=== PATIENT | male | born 1980 | race African-American/Black ===

== ENCOUNTER 2017-02-21 10:17 | Inpatient (IN) | payer MEDICAID ==
--- NOTE | 2017-02-21 11:12 | EDPHY ---
H & P Smoking Status: Current every day smoker Time Seen by Provider: 02/21/17 10:58 HPI/ROS: CHIEF COMPLAINT: "Any mental health" HISTORY OF PRESENT ILLNESS: Patient is a 36-year-old male with a history of paranoid schizophrenia who presents to the emergency department requesting mental health evaluation. The patient states that he moved from [facility]. He has been off his medications for 4 months. He has increased anxiety. He is hearing voices. He states he hears voices of both his children talking to him. Has no suicidal ideation or thoughts of wanting to hurt himself. He denies any drug abuse or self-harm. He has no chest pain or shortness of breath. No abdominal pain. REVIEW OF SYSTEMS: My complete review of systems is negative except as mentioned in the HPI. ( Ericka Zafar) Past Medical/Surgical History: Includes paranoid schizophrenia common pneumothorax Past surgical history: Thoracotomy for pneumothorax Social history: The patient smokes cigarettes. He denies drugs or alcohol ( Ericka Zafar) Physical Exam: Vitals noted GENERAL: Well-appearing, in no acute distress, alert. HEENT: Eyes normal to inspection, normal pharynx, no signs of dehydration. NECK: No thyromegaly, no lymphadenopathy, supple. RESPIRATORY: Clear to auscultation bilaterally, no rales, rhonchi or wheezing. CVS: Regular rate and rhythm, no rubs, murmurs, or gallops. ABDOMEN: Soft, nontender, nondistended, no organomegaly. BACK: Normal to inspection, no CVA tenderness. SKIN: Normal color, no rash, warm, dry. No pallor. EXTREMITIES: No pedal edema, no calf tenderness, no Homans sign or cords, no joint swelling. NEURO/PSYCH: Alert and oriented, tearful, normal motor sensory exam. No obvious cranial nerve deficit. (Ericka Zafar) Constitutional: Initial Vital Signs Temperature (C) 37.0 C 02/21/17 10:21 Heart Rate 91 02/21/17 10:21 Respiratory Rate 16 02/21/17 10:21 Blood Pressure 144/90 H 02/21/17 10:21 O2 Sat (%) 97 02/21/17 10:21 O2 Delivery Mode Room Air Allergies/Adverse Reactions: aspirin Allergy (Verified 02/21/17 10:20) ibuprofen Allergy (Verified 02/21/17 10:20) Home Medications: Medication Instructions Recorded Unobtainable 02/23/17 Medical Decision Making ED Course/Re-evaluation: The patient presents to the emergency department requesting a mental health evaluation. He has no suicidal ideation. I do not feel he needs to be placed on a mental health hold. I discussed this with nursing. Laboratory studies were drawn. Patient's laboratory studies were unremarkable. CBC and chemistry were normal. His tox screen was positive for THC. Patient was agitated during his initial evaluation. He was given Zyprexa 10 mg orally. 1500: The patient is signed out to Dr. Hooper at change of shift. Patient is stable. (Ericka Zafar) I assumed care of this patient from Dr. Zafar at change of shift, 3:00 p.m.. He has been medically cleared. We are awaiting evaluation from mental health. Patient was accepted [facility] and was transferred at 9:27 p.m.. Transfer paperwork signed by myself. (Savannah Hooper) Differential Diagnosis: My differential includes but is not limited to psychosis, schizophrenia, depression, suicidal ideation, drug abuse, alcohol abuse (Ericka Zafar) - Data Points Laboratory Results: Laboratory Results 02/21/17 11:05 02/21/17 11:05 Medications Given: Amlodipine Besylate (Norvasc) 5 mg PO HS [facility] Stop: 08/22/17 20:59 Last Admin: 02/24/17 20:57 Dose: 5 mg Benztropine Mesylate (Cogentin) 1 mg IM BID [facility] Stop: 02/25/17 23:59 Last Admin: 02/25/17 12:00 Dose: Not Given Benztropine Mesylate (Cogentin) 1 mg PO BID [facility] Stop: 02/25/17 23:59 Last Admin: 02/25/17 11:53 Dose: 1 mg Risperidone (Risperdal-M) 2 mg SL TID [facility] Stop: 02/25/17 23:59 Last Admin: 02/25/17 11:52 Dose: 2 mg Discontinued Medications Benztropine Mesylate (Cogentin) 1 mg PO BID [facility] Stop: 02/24/17 21:01 Last Admin: 02/24/17 20:57 Dose: 1 mg Benztropine Mesylate (Cogentin) 1 mg IM BID [facility] Stop: 02/24/17 21:01 Last Admin: 02/24/17 22:13 Dose: Not Given Diphenhydramine HCl (Benadryl) 50 mg PO ONCE ONE Stop: 02/23/17 20:46 Last Admin: 02/23/17 21:20 Dose: Not Given Diphenhydramine HCl (Benadryl Injection) 50 mg IM ONCE ONE Stop: 02/23/17 20:46 Last Admin: 02/23/17 20:59 Dose: 50 mg Haloperidol (Haldol) 5 mg PO ONCE ONE Stop: 02/23/17 20:46 Last Admin: 02/23/17 21:20 Dose: Not Given Haloperidol Lactate (Haldol Injection) 5 mg IM BID [facility] Stop: 02/24/17 11:15 Last Admin: 02/24/17 11:18 Dose: Not Given Haloperidol Lactate (Haldol Injection) 5 mg IM ONCE ONE Stop: 02/23/17 20:46 Last Admin: 02/23/17 20:59 Dose: 5 mg Haloperidol Lactate (Haldol Injection) 5 mg IM BID [facility] Stop: 02/24/17 21:01 Last Admin: 02/24/17 22:13 Dose: Not Given Lorazepam (Ativan) 1 mg PO Q4 PRN PRN Reason: ANXIETY Stop: 08/20/17 20:59 Last Admin: 02/25/17 09:28 Dose: 1 mg Lorazepam (Ativan) 2 mg PO ONCE ONE Stop: 02/23/17 20:46 Last Admin: 02/23/17 21:19 Dose: Not Given Lorazepam (Ativan Injection) 2 mg IM ONCE ONE Stop: 02/23/17 20:46 Last Admin: 02/23/17 20:59 Dose: 2 mg Lorazepam (Ativan) 2 mg PO Q4 PRN PRN Reason: Anxiety Stop: 02/25/17 09:20 Last Admin: 02/24/17 11:17 Dose: 2 mg Lorazepam (Ativan) 2 mg PO Q4HRS PRN PRN Reason: EMED for anxiety or agitation Stop: 02/26/17 10:41 Last Admin: 02/25/17 12:30 Dose: 2 mg Olanzapine (Zyprexa Zydis) 10 mg PO EDNOW ONE Stop: 02/21/17 12:49 Last Admin: 02/21/17 12:50 Dose: 10 mg Olanzapine (Zyprexa Zydis) 10 mg PO EDNOW ONE Stop: 02/21/17 21:28 Last Admin: 02/21/17 21:31 Dose: 10 mg Olanzapine (Zyprexa Zydis) 5 mg PO Q4 PRN PRN Reason: AGITATION Stop: 08/20/17 20:59 Last Admin: 02/22/17 06:58 Dose: 5 mg Olanzapine (Zyprexa Zydis) 10 mg PO BID [facility] Stop: 08/21/17 10:44 Last Admin: 02/23/17 09:04 Dose: Not Given Risperidone (Risperdal-M) 2 mg SL BID [facility] Stop: 02/24/17 11:15 Last Admin: 02/24/17 10:38 Dose: Not Given Risperidone (Risperdal-M) 4 mg SL BID [facility] Stop: 02/24/17 21:01 Last Admin: 02/24/17 20:57 Dose: 4 mg Departure - Departure Disposition: Home, Routine, Self-Care Clinical Impression: Schizophrenia Qualifiers: Schizophrenia type: unspecified Qualified Code(s): F20.9 - Schizophrenia, unspecified Condition: Good
[2017-02-21 11:13] LABS: % IMMATURE GRANULYOCYTES 0.1 % (0.0-1.1); ABSOLUTE IMMATURE GRANULOCYTES 0.01 10^3/uL (0.00-0.10); ADD DIFF? NO; ADD MORPH? NO; ADD SCAN? NO; ATYPICAL LYMPHOCYTE FLAG 20 (0-99); FRAGMENT RBC FLAG 0 (0-99); HEMATOCRIT 46.5 % (40.0-51.0); HEMOGLOBIN 15.9 g/dL (13.7-17.5); LEFT SHIFT FLG 0 (0-99); LIPEMIA HEMOLYSIS FLAG 90 (0-99); MEAN CELL HEMOGLOBIN 28.6 pg (27.9-34.1); MEAN CELL HEMOGLOBIN CONCENTR. 34.2 g/dL (32.4-36.7); MEAN CELL VOLUME 83.6 fL (81.5-99.8); MEAN PLATELET VOLUME 9.9 fL (8.7-11.7); PLATELET CLUMPS FLAG 10 (0-99); PLATELET COUNT 221 10^3/uL (150-400); RED BLOOD CELL COUNT 5.56 10^6/uL (4.40-6.38); RED CELL DISTRIBUTION WIDTH 12.8 % (11.5-15.2)
[2017-02-21 11:24] LABS: ANION GAP 10 mEq/L (8-16); CALCIUM 9.9 mg/dL (8.5-10.4); CARBON DIOXIDE 27 mEq/l (22-31); CHLORIDE 102 mEq/L (97-110); CREATININE 1.1 mg/dL (0.7-1.3); GLOMERULAR FILTRATION RATE > 60; GLUCOSE 94 mg/dL (70-100); POTASSIUM 4.1 mEq/L (3.5-5.2); SODIUM 139 mEq/L (134-144)
[2017-02-21] MEDS ORDERED: OLANZapine DISINTEGR 10 MG TAB PO ONE ×2 (12:48→21:27)
[2017-02-21 13:43] LABS: ETHANOL SERUM < 10 mg/dL (0-10)
[2017-02-21] MEDS ORDERED: MELATONIN 3 MG TAB PO PRN (21:00)
[2017-02-21] MEDS ORDERED: ACETAMINOPHEN 325 MG TAB PO PRN (21:00)
[2017-02-21] MEDS ORDERED: OLANZapine DISINTEGR 5 MG TAB PO PRN (21:00)
[2017-02-21] MEDS ORDERED: MAGNESIUM HYDROXIDE 30 ML UDCUP PO PRN (21:00)
[2017-02-21] MEDS ORDERED: MAG HYDROX/AL HYDROX/SIMETH 30 ML UDCUP PO PRN (21:00)
[2017-02-21] MEDS ORDERED: OLANZapine DISINTEGR 10 MG TAB ONE (21:21)
[2017-02-22] MEDS ORDERED: OLANZapine DISINTEGR 5 MG TAB PO PRN (10:43)
[2017-02-22] MEDS: OLANZapine DISINTEGR 10 MG TAB PO SCH ×2 (11:39→20:00)
--- NOTE | 2017-02-22 11:44 | BAPA ---
[f rep st] ADMISSION PSYCHIATRIC ASSESSMENT IDENTIFICATION: This is a 36-year-old, single, male, who is homeless, who has a history of mental illness, and reportedly moved to [place] from [place] 4 months ago. CHIEF COMPLAINT: "It does not matter. I don't want to insult your intelligence." HISTORY OF PRESENT ILLNESS: The patient is a poor historian. He is unable to explain how he got to the emergency room or his recent symptoms. He is unable to describe his mood or describe his thought content. He refuses to answer questions about past psychotic symptoms, past mood symptoms, past anxiety symptoms, past substance abuse, or past psychiatric treatments. The patient abruptly gets up from the interview and walks away in a disorganized manner. Per the emergency room department, the patient there was apparently acting disorganized, received olanzapine 10 mg twice p.r.n. for agitation, was briefly irritable and screaming and broke a phone. He was not able to give much history. The patient was admitted on an M1 hold dated February 21, 2017, at 6: 18 p.m. for grave disability due to disorganized behavior and thinking. The notes from the emergency room also indicate the patient endorsed having auditory hallucinations, having mood swings, having history of abbie, history of posttraumatic stress disorder, and history of intermittent explosive disorder. The patient also reported to the emergency room that he had not taken medications for 3 months after moving to [place] from [place]. PAST PSYCHIATRIC HISTORY: The patient is a poor historian, will not disclose his past treatment. He is unable to explain past medications or past psychiatric hospitalizations. Per the notes, the patient has a history of mental health treatment in [place]. The patient is unable to explain if he has any history of violence toward others or any self-injurious behavior in the past. The patient will not explain any legal problems, but there is a note in the emergency room evaluation that the patient may have been arrested for stalking a mental health worker in [place] in the past. PAST MEDICAL HISTORY: The patient is unable to explain his medical conditions. He did have a physical exam in the emergency department by the emergency room physician, but did not find any major medical problems. The patient has a history of a pneumothorax treated surgically in the past per notes. MEDICATIONS: The patient reported not taking any medications in the emergency room. ALLERGIES: The patient has listed allergies to ibuprofen and aspirin. SOCIAL HISTORY: The patient is unable to explain his childhood history. In the emergency room, he reported that his mother lives in [place], and that he was homeless and unemployed and denied a history of trauma. The patient reported to the emergency room that he has a GED, and has in the past lived in homeless shelters, and has in the past done construction jobs. FAMILY HISTORY: He told a staff that his brother and father were murdered. LABS: In the Emergency Department, the CBC was normal with a white blood cell count 7.2, hemoglobin 15.9, platelet count 221. His BMP was normal with a sodium 139, potassium 4.1, chloride 102, BUN 11, creatinine 1.1, glucose 94, calcium 9.9. His urine tox screen was positive for cannabis only. MENTAL STATUS EXAM: VITAL SIGNS: This morning, his blood pressure is 129/80, pulse 114, respiratory rate 14, pulse ox 95% on room air. He is afebrile. PSYCH: He is a tall and thin male who is ambulatory. He appears briefly agitated. He has poor eye contact. Appears internally preoccupied and mumbling to himself. His thoughts are disorganized. His behavior is disorganized; earlier he attempted to hug a staff. He impulsively gets up and walks away. He appears agitated and anxious. He is unable to describe his mood. His thought process is illogical and disjointed. Unable to assess for his thought content, so unable to assess if he is having violent or suicidal thoughts or hallucinations at this time. He appears suspicious and paranoid to this doctor. His insight appears to be poor. His judgment appears to be impaired. ASSESSMENT: 1. Schizophrenia, rule out schizoaffective disorder, bipolar type. 2. Cannabis use disorder. 3. Homelessness. No supports. Overall the patient appears disorganized, illogical, and agitated this morning. He did receive 20 mg of olanzapine in the emergency room yesterday. Unable to obtain clear information regarding past treatment episodes that the patient may have had in the past for mental illness. The patient appears to have severe stressors with homelessness. The patient may or may not have legal stressors in [place], based on the report in the emergency room that he had a history of an arrest for stalking. PLAN OF TREATMENT: 1. The patient is on mental health hold for grave disability. The patient does not appear able to care for himself, as he has been homeless prior to admission, has no supports, and appears very disorganized. 2. The patient did apparently have some benefit from olanzapine in the emergency room yesterday, so we will schedule olanzapine oral dissolving tablet 10 mg by mouth twice a day, starting this morning, to treat the psychotic disorganization. 3. We will monitor the patient's behavior, impulse control, and judgment on that unit, and reassess the patient's mood symptoms to clarify if the patient has a chronic mood disorder when the patient is cooperative. 4. When the patient is cooperative and more calm, we will try to obtain more social history and information about his past psychiatric treatment episodes. 5. It is unclear if the patient will be eventually discharged into the [facility] or back to [place]. The patient apparently has [facility] Medicaid, so may or may not have had treatment in [place] before. 6. If the patient is cooperative, we will try to obtain release information to contact the patient's mother to get collateral information. We will order Ativan 1 mg p.o. q.4 hours p.r.n. for severe anxiety or insomnia on the unit. 7. The patient will get a baseline physical exam by the hospitalist today or tomorrow. /[id number]/MODL MTDD
--- NOTE | 2017-02-23 03:59 | BCON ---
[f rep st] BEHAVIORAL HEALTH CONSULTATION INTERNAL MEDICINE CONSULTATION DATE OF CONSULTATION: 02/22/2017 REFERRING PHYSICIAN: Wesley Flores MD REASON FOR CONSULTATION: Medical clearance for inpatient behavioral health stay. HISTORY OF PRESENT ILLNESS: This patient came to the [facility] Emergency Department requesting mental health help. There he was evaluated by the mental health team and admitted for further psychiatric care. Currently, he is without any acute medical complaints. PAST MEDICAL HISTORY: 1. Cataracts, which he reports is a hereditary condition. 2. Pneumothorax. PAST SURGICAL HISTORY: He has had cataract surgery, and he had a surgery for a pneumothorax. MEDICATIONS: Prior to admission, he is not forthcoming. ALLERGIES: Listed to aspirin and ibuprofen. SOCIAL HISTORY: Gleaned from reviewing the chart. He is homeless. He has been in [place] for several months. He came from [place], [place]. He is a tobacco/cigarette smoker. FAMILY HISTORY: He is not forthcoming. REVIEW OF SYSTEMS: Very limited. He denies pain, difficulty breathing, or any other acute symptoms. Otherwise, he is not cooperative. PHYSICAL EXAMINATION: VITAL SIGNS: Blood pressure is 129/80, heart rate was 114 at 6:36 this morning, respiratory rate is 14, oxygen saturation is 95% on room air, temperature is 36.3 degrees centigrade. His weight is 83.9 kg for a body mass index of 24.1. GENERAL: This is a well-nourished, well-developed man , initially cooperative, subsequently emotionally labile, and no longer cooperative. HEENT: Extraocular movements are intact. Mucous membranes are moist. Dentition appears to be in good condition. NECK: Supple. HEART: He was not cooperative with exam. LUNGS: There are no retractions and no accessory muscle use. He is not tachypneic. ABDOMEN: Appears to be benign. EXTREMITIES: There is no cyanosis, clubbing, or edema. NEUROLOGIC: He is alert. Orientation was not checked. He is emotionally labile and becomes tearful and crying during the interview. He also has psychomotor agitation, and eventually gets up and walks away. He moves all extremities and appears to have no focal weakness. His gait is within normal limits. LABORATORY STUDIES: Drawn in the emergency department, CBC was entirely within normal limits. Serum chemistry revealed normal renal function and electrolytes. Toxicology screen in the serum was negative for ethyl alcohol. Urine was non-negative for marijuana, but was otherwise negative for substances of abuse. ASSESSMENT/RECOMMENDATIONS: 1. Mental health issues pending further evaluation and management per Psychiatry and the mental health team. 2. Tobacco dependence syndrome. It would be in his best interest to quit smoking. 3. Elevated blood pressure, has been normalizing during his stay. Continue to monitor. If it remains elevated, he might benefit from antihypertensives, but he does not seem to meet threshold at this point. I see no medical contraindications to this patient's continued stay on the inpatient behavioral health unit or to any psychiatric medications or procedures. Thank you very much for including me in the care of this patient, and please do not hesitate to contact me or the hospitalist service should there be need for further medical evaluation. /[id number]/MODL MTDD
[2017-02-23] MEDS: LORazepam 1 MG TAB PO PRN (07:19)
[2017-02-23] MEDS: OLANZapine DISINTEGR 10 MG TAB PO SCH (09:04)
--- NOTE | 2017-02-23 11:06 | SOAPPROG ---
SOAP Progress Note Assessment/Plan: Assessment: Schizoaffective Disorder Cannabis Use Disorder - severe Homeless, no current supports Hypertension Patient admitted on M-1 hold for severe agitation, property destruction, and severe disorganization. Patient refused Zyprexa this AM and required PRN medication yesterday for agitation and impulsive behavior; patient impulsive throwing food and yelling inappropriately this AM. Patient is guarded, disorganized, and a poor historian. Plan: EMED DAY ONE Start Risperdal Mtab 2mg SL BID, if refused Haldol 5mg IM Start Ativan 1mg PO [id number] PRN anxiety/insomnia, if refused IM ativan one mg Start Cogentin 1mg PO/IM BID PRN EPS Monitor behavior, impulse control Start Amlodipine 5mg QHS for HTN Filed short term certification and request for court ordered medications 02/23/17 11:09 Subjective: "I'm alright, what do you care" Patient unable to explain his thought content or emotions, unable to explain why he threw food this AM, threw a book and was yelling profanity at a patient, why he refused Zyprexa this AM. Denies any physical complaints. Endorses past psychiatric hospitalizations but won't explain when or where. Endorses past bipolar disorder, schizophrenia, and schizoaffective disorder diagnoses but won' t explain when or where. Unable to explain why he is in the hospital. cis coordinator spoke to mother yesterday, who reported patient has a history of multiple psychiatric hospitalizations and recurrent non-compliance with psychiatric medication. Objective: Vital Signs Temp Pulse Resp BP Pulse Ox 36.8 C 95 16 150/87 H 96 02/23/17 05:47 02/23/17 06:00 02/23/17 06:00 02/23/17 06:00 02/23/17 06:00 Alert tall thin AAM with moustache. Disorganized behavior. Angry, hostile affect. Thoughts illogical disorganized with proverty of information. Mood 'I' m alright why do you care" No answer when asked about thoughts to harm self or others, no answer when asked about paranoia or AH. No insight, impaired judgment. Staff report patient slept 6 hours overnight, received PRN Zyprexa and scheduled Zyprexa yesterday, refused scheduled Zyprexa this AM. Patient threw food this AM and threw a book last night, yelling at another patient. - Time Spent With Patient Time Spent With Patient: 50 minutes - Pending Discharge Pending Discharge Within 24 Hours: No Pending Discharge Within 48 Hours: No ICD10 Worksheet Patient Problems: Problems Problem Status Onset Cannabis use disorder, moderate, dependence Acute Schizoaffective disorder Acute
[2017-02-23] MEDS ORDERED: LORazepam 1 MG TAB PO PRN (11:08)
[2017-02-23] MEDS ORDERED: LORazepam 2 MG/ML INJ IM PRN (11:10)
[2017-02-23] MEDS ORDERED: BENZTROPINE MESYLATE 1 MG TAB PO PRN (11:11)
[2017-02-23] MEDS ORDERED: BENZTROPINE MESYLATE 2 MG/2 ML INJ IM PRN (11:12)
[2017-02-23] MEDS: RISPERIDONE 2 MG ODT TAB SL SCH ×2 (11:25→21:20)
[2017-02-23] MEDS: HALOPERIDOL LACT 5 MG/ML INJ IM SCH ×2 (12:02→21:17)
--- NOTE | 2017-02-23 20:28 | SOAPPROG ---
SOAP Progress Note Assessment/Plan: boarding specialist psychiatry note: 02/23/17 20:23 p/c from staff reporting pt placed in seclusion after became acutely agitated and escalated around use of phone, no clear precipitant, threw phone at wall and destroyed it, then tore large pictures off the wall and destroyed them. required take-down with 2 security involved. reviewed history. has Emeds ordered already, will adjust due to extreme level of agitation, Ativan 2mg po/IM x 1 now, Benadryl 50mg po/IM x 1 now, and Haldol 5mg po/IM x 1 now. 02/23/17 22:45 just now received p/c from [facility] staff to inform MD that pt coughed up "just one drop of blood" after secluded, and that pt then made comment about having internal injuries. has otherwise been sleeping and has refused vitals. -need to get VS, pt not allowed to refuse. -pt may need txf to ER for eval. did have a physical take-down with 2 security. has hx of PTX. very sedated 2/2 meds. 02/23/17 23:09 discussed case with ED attending. accepts pt for brief eval in ED with CXR as pt seems difficult to accurately assess in present condition. p/c from [facility], VSS. pt continued very sedated. cough was actually with 1 large+ 1small drop blood. production shift supervisor staff reported pt had cough last night. -Txf to ED for eval Objective: Vital Signs Temp Pulse Resp BP Pulse Ox 36.8 C 95 16 150/87 H 96 02/23/17 05:47 02/23/17 06:00 02/23/17 06:00 02/23/17 06:00 02/23/17 06:00 ICD10 Worksheet Patient Problems: Problems Problem Status Onset Cannabis use disorder, moderate, dependence Acute Schizoaffective disorder Acute
[2017-02-23] MEDS ORDERED: LORazepam 1 MG TAB PO ONE (20:45)
[2017-02-23] MEDS ORDERED: diphenhydrAMINE 50 MG CAP PO ONE (20:45)
[2017-02-23] MEDS ORDERED: LORazepam 2 MG/ML INJ IM ONE (20:45)
[2017-02-23] MEDS ORDERED: HALOPERIDOL LACT 5 MG/ML INJ IM ONE (20:45)
[2017-02-23] MEDS ORDERED: HALOPERIDOL 5 MG TAB PO ONE (20:45)
[2017-02-23] MEDS: amLODIPine BESYLATE 5 MG TAB PO SCH (21:21)
--- NOTE | 2017-02-24 09:18 | SOAPPROG ---
SOAP Progress Note Assessment/Plan: Assessment: Schizoaffective Disorder Intermittent Explosive Disorder Cannabis Use Disorder - severe Homeless, no current supports Hypertension - on amlodipine 5mg (refused last night) Patient admitted on M-1 hold for severe agitation, property destruction, and severe disorganization. Patient now on short term certification with request for court ordered medications dated 02/23/17 Patient refused PM medication and was in seclusion last night for severe agitation and property destruction 02/23/17 Plan: EMED DAY TWO Increase Risperdal Mtab 4mg SL BID, if refused Haldol 5mg IM Start Cogentin 1mg BID, if refused Cogentin 1mg IM Increase Ativan 2mg [id number] PRN agitation, if refused Ativan 2mg IM Monitor behavior, impulse control 02/24/17 09:17 Subjective: Patient ambulating in seclusion but non-verbal when asked questions. Objective: Vital Signs Temp Pulse Resp BP Pulse Ox 36.4 C 69 14 112/69 97 02/24/17 02:27 02/24/17 02:27 02/24/17 02:27 02/24/17 02:27 02/24/17 02:27 Thin AAM. Ambulatory in seclusion, no acute distress. Disorganized behavior. Non-sensical soft speech. Mood - no reply when asked. Affect paranoid, suspicious glaring thru window. No reply when asked about thought content. Unable to assess for SI or violent thoughts. No insight, impaired judgment. Patient sent to ER last night after seclusion due to cough. Patient had normal chest X-ray and exam. Staff report patient last PM was agitated and tore multiple pictures off wall and was yelling non-sensical statements and acting bizarre, placed in seclusion , refused PM Risperdal 2mg SL and received Haldol 5mg IM. - Time Spent With Patient Time Spent With Patient: 15 minutes - Pending Discharge Pending Discharge Within 24 Hours: No Pending Discharge Within 48 Hours: No ICD10 Worksheet Patient Problems: Problems Problem Status Onset Cannabis use disorder, moderate, dependence Acute Intermittent explosive disorder Acute Schizoaffective disorder Acute Coughing Acute
[2017-02-24] MEDS ORDERED: LORazepam 2 MG/ML INJ IM PRN (09:23)
[2017-02-24] MEDS: LORazepam 1 MG TAB PO PRN ×3 (10:36→17:06)
[2017-02-24] MEDS: BENZTROPINE MESYLATE 1 MG TAB PO SCH ×3 (10:36→20:57)
[2017-02-24] MEDS: RISPERIDONE 2 MG ODT TAB SL SCH ×4 (10:37→20:57)
[2017-02-24] MEDS: BENZTROPINE MESYLATE 2 MG/2 ML INJ IM SCH ×3 (10:39→22:13)
[2017-02-24] MEDS: HALOPERIDOL LACT 5 MG/ML INJ IM SCH ×3 (11:18→22:13)
[2017-02-24] MEDS: amLODIPine BESYLATE 5 MG TAB PO SCH (20:57)
[2017-02-24 22:53] LABS: ALANINE AMINOTRANSFERASE 34 IU/L (21-72); ALBUMIN 4.4 g/dL (3.5-5.0); ALKALINE PHOSPHATASE 93 IU/L (38-126); ASPARTATE AMINOTRANSFERASE 56 IU/L (17-59); BILIRUBIN,TOTAL 0.7 mg/dL (0.1-1.4); BILIRUBIN-CONJUGATED 0.2 mg/dL (0.0-0.5); BILIRUBIN-UNCONJUGATED 0.5 mg/dL (0.0-1.1); TOTAL PROTEIN 7.4 g/dL (6.3-8.2)
[2017-02-24 23:18] LABS: HEMOGLOBIN A1C 5.5 % (4.0-6.0)
[2017-02-25 06:57] VITALS: RESP 16
[2017-02-25] MEDS: LORazepam 1 MG TAB PO PRN (09:28)
[2017-02-25] MEDS ORDERED: HALOPERIDOL LACT 5 MG/ML INJ IM PRN (10:41)
[2017-02-25] MEDS ORDERED: LORazepam 1 MG TAB PO PRN (10:42)
[2017-02-25] MEDS ORDERED: RISPERIDONE 2 MG ODT TAB SL PRN (10:46)
--- NOTE | 2017-02-25 11:21 | SOAPPROG ---
SOAP Progress Note Assessment/Plan: Assessment: Schizoaffective Disorder Intermittent Explosive Disorder Cannabis Use Disorder - severe Homeless, no current supports Hypertension - on amlodipine Patient admitted on M-1 hold for severe agitation, property destruction, and severe disorganization. Patient now on short term certification with request for court ordered medications dated 02/23/17 Patient is reportedly from who is also homeless and on SS benefits and has a history of incarceration per Ship Construction Teacher note. Patient was in seclusion 02/23/17-02/24/17 after acting disorganized, bizarre, tearing picture off wall, menacing staff, and throwing a chair. Notes from [facility] in [place] indicate that in July 2016 patient was prescribed Risperdal 6mg/day, Consta 37.5mg IM [id number], Benadryl 50mg BID, Cogentin 1.5mg/day. Patient continues to appear disorganized and suspicious without insight Plan: EMED DAY THREE Change Risperdal Mtab 2mg SL TID, if refused Haldol 5mg IM Continue Cogentin 1mg BID, if refused Cogentin 1mg IM Continue Ativan 2mg [id number] PRN agitation, if refused Ativan 2mg IM Monitor behavior, impulse control, organization, insight/judgment 02/25/17 11:26 Subjective: "What are you asking me" "How did I get here" "I have the universal right to be free" Patient is a poor historian. Unable to explain how he got to the hospital. Unable to explain how he would obtain food or long term if discharged from the psychiatric unit. Unable to explain why he threw a chair and tore down picture off wall on 02/23. Denies stiffness, tremors, constipation, or difficulty urinating. Unable to explain mood or describe thought content. Objective: Vital Signs Temp Pulse Resp BP Pulse Ox 36.6 C 91 16 119/84 H 97 02/25/17 06:00 02/25/17 06:00 02/25/17 06:00 02/25/17 06:00 02/25/17 06:00 Alert thin AAM, ambulatory without tremors or weakness or slowing. Mood 'what are you asking me?" Affect labile - dysphoric and sad, later odd smiling, then irritable, suspicious/paranoid. Thoughts disorganized with loose associations and odd content. Denies AH. Denies SI or HI. Unable to explain how he got admitted to hospital, diagnosis, or treatment plan. Poor/no insight. Impaired judgment. Staff report patient slept 12 hours, took PO medications yesterday PM only after review of emergency medication procedures. Patient ate partial breakfast and was calm around other patients, but irritable and disorganized when approached by staff. - Time Spent With Patient Time Spent With Patient: 25minutes - Pending Discharge Pending Discharge Within 24 Hours: No Pending Discharge Within 48 Hours: No ICD10 Worksheet Patient Problems: Problems Problem Status Onset Cannabis use disorder, moderate, dependence Acute Intermittent explosive disorder Acute Schizoaffective disorder Acute
[2017-02-25] MEDS: RISPERIDONE 2 MG ODT TAB SL SCH ×3 (11:52→21:07)
[2017-02-25] MEDS: BENZTROPINE MESYLATE 1 MG TAB PO SCH ×2 (11:53→21:07)
[2017-02-25] MEDS: BENZTROPINE MESYLATE 2 MG/2 ML INJ IM SCH ×2 (12:00→21:15)
--- NOTE | 2017-02-25 14:42 | SOAPPROG ---
SOAP Progress Note Assessment/Plan: Assessment: 36 yo homeless man with h/o schizoaffective disorder, cannabis use disorder, who self-presented to [facility] ED on 02/21/17 requesting help to be back on psych meds. Patient was previously living in [place] and receiving psych services there. He has reportedly been living in [place] for past 4 months. Plan: SECOND OPINION FOR EMEDS 02/25/17 14:35 1. Based on recent violent, aggressive behavior, destruction of property and threats to staff, agrees patient should continue on emergency medications. 2. Patient still presents as disorganized with impulsive and reckless behavior. Subjective: Met briefly with patient, reviewed chart and discussed case with staff. Patient was in seclusion yesterday for violent behavior, property destruction, aggression and threats to staff. He presents as disorganized, not able to understand the severity of his symptoms. He is not fully oriented to place or situation. He continues to demonstrate signs of psychosis and thought impairment. Based on his presentation, severity of his mental illness and recent violent and aggressive behaviors, recommend he continue on emergency medications. Objective: Vital Signs Temp Pulse Resp BP Pulse Ox 36.6 C 91 16 119/84 H 97 02/25/17 06:00 02/25/17 06:00 02/25/17 06:00 02/25/17 06:00 02/25/17 06:00 MSE: Affect: Constricted Mood: Labile TP: Disorganized TC: No SI/HI Insight /Judgment: Impaired - Time Spent With Patient Time Spent With Patient: < 10" - Pending Discharge Pending Discharge Within 24 Hours: No Pending Discharge Within 48 Hours: No ICD10 Worksheet Patient Problems: Problems Problem Status Onset Cannabis use disorder, moderate, dependence Acute Intermittent explosive disorder Acute Schizoaffective disorder Acute Schizophrenia Acute
[2017-02-25] MEDS: LORazepam 1 MG TAB PO SCH ×2 (16:40→21:07)
[2017-02-25] MEDS: amLODIPine BESYLATE 5 MG TAB PO SCH (21:07)
[2017-02-26 06:32] VITALS: TEMP 97.2; O2SAT 93
[2017-02-26 07:00] VITALS: BP 128/74; PULSE 104
[2017-02-26] MEDS ORDERED: HALOPERIDOL LACT 5 MG/ML INJ IM PRN (08:57)
[2017-02-26] MEDS ORDERED: BENZTROPINE MESYLATE 2 MG/2 ML INJ IM PRN (08:59)
[2017-02-26] MEDS ORDERED: LORazepam 2 MG/ML INJ IM PRN (08:59)
--- NOTE | 2017-02-26 09:08 | SOAPPROG ---
SOAP Progress Note Assessment/Plan: Assessment: Schizoaffective Disorder Intermittent Explosive Disorder Cannabis Use Disorder - severe Homeless, no current supports; history of legal issues Hypertension - resolved History of stimulant use disorder Patient admitted on M-1 hold for severe agitation, property destruction, and severe disorganization. Patient now on short term certification with request for court ordered medications dated 02/23/17 Patient was in seclusion 02/23/17-02/24/17 after acting disorganized, bizarre, tearing picture off wall, menacing staff, and throwing a chair. Notes from [facility] in [place] indicate that in July 2016 patient was prescribed Risperdal 6mg/day, Consta 37.5mg IM [id number], Benadryl 50mg BID, Cogentin 1.5mg/day. Patient is reportedly from who is also homeless and on SS benefits and has a history of incarceration per Heel Scorer note. Today patient appears to much more calm and able to tolerate M.D. interview, a marked improvement. However patient appears to have benzodiazepine intoxication (slurred speech, ataxia); patient has continued disorganized thought process with paranoid/suspicious attitude. Plan: Discontinue Amlodipine EMED DAY FOUR Continue Risperdal Mtab 2mg SL TID, if refused Haldol 5mg IM Continue Cogentin 1mg BID, if refused Cogentin 1mg IM Reduce Ativan 1mg TID, if refused give Ativan 1mg IM Risperdal Mtab 2mg SL [id number] PRN agitation; Ativan 2mg QHS PRN insomnia Monitor behavior, impulse control, organization, insight/judgment; assess if patient consistently calm and compliant with medications and willing to sign HANK for a [facility] prior to discharge; will plan to offer Invega Sustenna or Risperdal Consta prior to discharge if continuing to improve on Risperdal. 02/26/17 09:08 Subjective: "Its not here or there. My agenda is my agenda. Who is your dried yeast supervisor?" Patient is a poor historian but able to sit with M.D. for interview. Reports sleeping well. Unable to explain where he would go and how he would obtain longterm or food if not on the unit "this coffee right here will keep me warm." Reports he hasn't been receiving MH treatment in [place]. Unwilling/unable to explain why he left [place]. Denies violent or suicidal thoughts or hallucinations. With orientation questions reports he is in [facility], February 2017. Objective: Vital Signs Temp Pulse Resp BP Pulse Ox 36.2 C 104 H 16 128/74 H 93 02/26/17 06:00 02/26/17 06:59 02/26/17 06:00 02/26/17 06:59 02/26/17 06:00 Alert tall AAM, ambulatory without tremors or focal weakness but ataxic. Speech soft with slurred words. Thoughts disorganized with loose associations and a poverty of detail/content. Denies SI or HI or AH. Paranoid/suspicious attitude. Evasive/circumstantial at times. Insight poor judgment impaired. Staff report patient refused amlodipine but BP improved on unit. Patient compliant with Risperdal 2mg TID and Ativan 2mg TID only when explained that he is on emergency medication, received extra PRN Ativan for agitation yesterday mid-day. KAMLA note from early February at outside ER reports patient self presented in ER reporting depression and methamphetamine use. - Time Spent With Patient Time Spent With Patient: 30 minutes - Pending Discharge Pending Discharge Within 24 Hours: No Pending Discharge Within 48 Hours: No ICD10 Worksheet Patient Problems: Problems Problem Status Onset Schizophrenia Acute Intermittent explosive disorder Acute Cannabis use disorder, moderate, dependence Acute
[2017-02-26] MEDS ORDERED: LORazepam 1 MG TAB PO PRN (09:15)
[2017-02-26] MEDS: LORazepam 1 MG TAB PO SCH ×3 (09:29→21:20)
[2017-02-26] MEDS: RISPERIDONE 2 MG ODT TAB SL SCH ×3 (09:29→21:21)
[2017-02-26] MEDS: BENZTROPINE MESYLATE 1 MG TAB PO SCH ×2 (09:29→21:20)
[2017-02-26] MEDS: RISPERIDONE 2 MG ODT TAB SL PRN ×2 (12:51→15:35)
[2017-02-26] MEDS ORDERED: HALOPERIDOL LACT 5 MG/ML INJ IM ONE (13:04)
[2017-02-26] MEDS ORDERED: LORazepam 1 MG TAB PO ONE (13:05)
[2017-02-27] MEDS: BENZTROPINE MESYLATE 1 MG TAB PO SCH ×2 (08:47→21:29)
[2017-02-27] MEDS: LORazepam 1 MG TAB PO SCH ×2 (08:47→16:36)
[2017-02-27] MEDS: RISPERIDONE 2 MG ODT TAB SL SCH ×3 (08:48→21:30)
--- NOTE | 2017-02-27 13:23 | SOAPPROG ---
SOAP Progress Note Assessment/Plan: Assessment: 36 yo homeless man with h/o schizoaffective disorder, cannabis use disorder, who self-presented to [facility] ED on 02/21/17 requesting help to be back on psych meds. Patient was previously living in [place] and receiving psych services there. He has reportedly been living in [place] for past 4 months. 02/27/17 13:18 1. Patient was slightly calmer and more cooperative today. 2. EMEDS Day #5 - continue d/t recent violent and aggressive behavior 3. No s/s of EPS Subjective: Met with patient with Sarah DREW, lynne, reviewed chart and d/w staff. Patient presents somewhat calmer, able to answer short questions with limited responses. Several times, patient says, "I reserve the right to ask more questions at a later date." Patient says he isn't sure whether he will stay in [place]. He says he has "a list of things I want to do." MD inquires if these are things he wants to do in [place], he says, "not necessarily...they're all over." He denies any thoughts or plans to hurt himself or anyone else. He ate 100% of breakfast today and sat in dining room with other patients and was appropriate. He has some delayed speech, and asks questions to be repeated, but appears to have more spontaneity and better thought organization. He also presents as less paranoid, he let RN open his meds and hand them to him without insisting on checking labels and opening them himself which he's done other days. Objective: Vital Signs Temp Pulse Resp BP Pulse Ox 36.2 C 104 H 16 128/74 H 93 02/26/17 06:00 02/26/17 06:59 02/26/17 06:00 02/26/17 06:59 02/26/17 06:00 MSE: Slightly less irritable and labile. Affect: Flat Mood: "OK" TP: Still disorganized, some thought blocking, but shows improvement TC: Denies any SI/HI , no Ah/VH, internally preoccupied though, less paranoid Insight/Judgment: Impaired - Time Spent With Patient Time Spent With Patient: 20" - Pending Discharge Pending Discharge Within 24 Hours: No Pending Discharge Within 48 Hours: No ICD10 Worksheet Patient Problems: Problems Problem Status Onset Cannabis use disorder, moderate, dependence Acute Intermittent explosive disorder Acute Schizophrenia Acute
[2017-02-27] MEDS ORDERED: BENZTROPINE MESYLATE 2 MG/2 ML INJ IM PRN (13:24)
[2017-02-27] MEDS ORDERED: LORazepam 2 MG/ML INJ IM PRN ×2 (13:24→16:00)
[2017-02-27] MEDS ORDERED: HALOPERIDOL LACT 5 MG/ML INJ IM PRN (13:24)
[2017-02-27] MEDS ORDERED: LORazepam 1 MG TAB PO SCH (21:00)
[2017-02-28] MEDS: RISPERIDONE 2 MG ODT TAB SL SCH ×3 (09:04→19:11)
[2017-02-28] MEDS: BENZTROPINE MESYLATE 1 MG TAB PO SCH ×2 (09:04→19:12)
[2017-02-28] MEDS: LORazepam 1 MG TAB PO SCH ×5 (09:05→19:12)
--- NOTE | 2017-02-28 13:03 | SOAPPROG ---
SOAP Progress Note Assessment/Plan: Assessment: 36 yo homeless man with h/o schizoaffective disorder, cannabis use disorder, who self-presented to [facility] ED on 02/21/17 requesting help to be back on psych meds. Patient was previously living in [place] and receiving psych services there. He has reportedly been living in [place] for past 4 months. 02/27/17 13:18 1. Patient was slightly calmer and more cooperative today. 2. EMEDS Day #5 - continue d/t recent violent and aggressive behavior 3. No s/s of EPS 02/28/17 12:59 1. Patient is much more coherent and organized today. He participated in group therapy and even selected a song by name. 2. EMEDS Day #6 Subjective: Met with patient, reviewed chart and d/w staff. Patient observed lying in recliner in therapy room listening to music and talking to peers intermittently. He chose a song by Fabiola Ha, and when MD asked if she was a country & western carl, patient said, "yes, but she also sings many different styles of music." Patient was most appropriate, socially interactive, cooperative and organized he's been since admission. He spent time talking pleasantly to application security specialist and had appropriate interactions with staff. He showed no signs of paranoia about taking meds and ate 100% of meals. Objective: Vital Signs Temp Pulse Resp BP Pulse Ox 36.2 C 104 H 16 128/74 H 93 02/26/17 06:00 02/26/17 06:59 02/26/17 06:00 02/26/17 06:59 02/26/17 06:00 MSE: More pleasant, calmer and more cooperative. Affect: More range of affect Mood: "OK" TP: More organized, more goal-directed TC: Denies any SI/HI, no AH/ VH, no paranoia Insight/Judgment: Poor, but improving - Time Spent With Patient Time Spent With Patient: 20" - Pending Discharge Pending Discharge Within 24 Hours: No Pending Discharge Within 48 Hours: No ICD10 Worksheet Patient Problems: Problems Problem Status Onset Cannabis use disorder, moderate, dependence Acute Intermittent explosive disorder Acute Schizophrenia Acute
[2017-02-28] MEDS ORDERED: HALOPERIDOL LACT 5 MG/ML INJ IM PRN (13:41)
[2017-02-28] MEDS ORDERED: LORazepam 2 MG/ML INJ IM PRN ×3 (13:41→16:00)
[2017-02-28] MEDS ORDERED: BENZTROPINE MESYLATE 2 MG/2 ML INJ IM PRN (13:41)
[2017-02-28] MEDS ORDERED: LORazepam 1 MG TAB PO PRN (14:07)
[2017-03-01] MEDS ORDERED: LORazepam 1 MG TAB PO PRN (08:23)
--- NOTE | 2017-03-01 08:31 | SOAPPROG ---
SOAP Progress Note Assessment/Plan: Assessment: Schizoaffective Disorder Intermittent Explosive Disorder Cannabis Use Disorder - severe Homeless, no current supports; history of legal issues Rule Out PTSD Patient admitted on M-1 hold for severe agitation, property destruction, and severe disorganization. Patient now on short term certification with request for court ordered medications dated 02/23/17 Patient was in seclusion 02/23/17-02/24/17 after acting disorganized, bizarre, tearing picture off wall, menacing staff, and throwing a chair. Notes from [facility] in [place] indicate that in July 2016 patient was prescribed Risperdal 6mg/day, Consta 37.5mg IM [id number], Benadryl 50mg BID, Cogentin 1.5mg/day. Patient is reportedly from (who is also homeless); patient reports receiving SS benefits. Today patient appears calm and pleasant but has poor insight. Patient was eating well and calm over weekend and cooperative with PO medications. Patient reports he is willing to get follow up at [facility] after discharge. Plan: Discontinue EMEDS Risperdal 3mg BID Cogentin 1mg BID Ativan 1mg [id number] PRN anxiety or insomnia Monitor behavior, impulse control Possible discharge tomorrow if continuing to stay calm and interact appropriately with staff and other patients 03/01/17 08:33 Subjective: "I'm alright, I need more coffee" Patient denies any current problems. Denies stiffness, tremors, or feeling sedated. Won't explain why he is in [place] or where he would go after discharge "I can go wherever I want." Reports past treatment in [place] at [facility]. Denies any violent or suicidal thoughts. Denies paranoia or AH. Reports he doesn't think he has Schizophrenia and thinks he has PTSD. Endorses childhood trauma but won't explain. Denies nightmares or flashbacks. Objective: Vital Signs Temp Pulse Resp BP Pulse Ox 36.2 C 104 H 16 128/74 H 93 02/26/17 06:00 02/26/17 06:59 02/26/17 06:00 02/26/17 06:59 02/26/17 06:00 Alert thin AAM sitting quietly. Speech RRR, few words. Mood 'alright.' Affect euthymic, pleasant. Thoughts briefly organized with poverty of detail/ content. Denies SI or HI or paranoia or AH. Memory: intact to month, year, name of hospital. Limited insight. Questionable judgment. Staff report over weekend patient was calm and ate 100% of dinner both Sat and Sun. Patient cooperative with PO medication and didn't require IM. - Time Spent With Patient Time Spent With Patient: 25 minutes - Pending Discharge Pending Discharge Within 24 Hours: Yes Pending Discharge Date: 03/02/17 Pending Discharge Time: 11:00 ICD10 Worksheet Patient Problems: Problems Problem Status Onset Schizophrenia Acute Intermittent explosive disorder Acute Cannabis use disorder, moderate, dependence Acute
[2017-03-01] MEDS: BENZTROPINE MESYLATE 1 MG TAB PO SCH ×2 (08:58→21:12)
[2017-03-01] MEDS: risperiDONE 2 MG TAB PO SCH ×2 (08:58→21:12)
[2017-03-01] MEDS ORDERED: CLOTRIMAZOLE 1% 15 GM CRTUBE TP PRN ×2 (11:22→11:34)
--- NOTE | 2017-03-01 14:33 | SOAPPROG ---
SOAP Progress Note Assessment/Plan: Assessment: Hemoptysis per patient. This has not been observed by staff. He was sent to the emergency department after a prior episode and had a normal chest x-ray. There is no anemia. Advise continued monitoring and if possible documentation of the event. If he truly has a mop assist with a normal chest x-ray further evaluation is in order. He could be referred to pulmonology after discharge. Would evaluate further if he were to be cooperative with evaluation. 03/01/17 14:31 Subjective: Asked to see patient regarding report of coughing up blood this morning. He says that I have come to late and he does not need to see me. He denies dyspnea. He is not currently coughing. He says he has some low left anterior chest pain. Objective: Vital Signs Temp Pulse Resp BP Pulse Ox 36.2 C 104 H 16 128/74 H 93 02/26/17 06:00 02/26/17 06:59 02/26/17 06:00 02/26/17 06:59 02/26/17 06:00 Physical Exam - Physical Exam General Appearance: WD/WN, alert, no apparent distress Respiratory: No respiratory distress, No accessory muscle use Neuro/Psych: no motor/sensory deficits, alert, normal mood/affect ICD10 Worksheet Patient Problems: Problems Problem Status Onset Cannabis use disorder, moderate, dependence Acute Intermittent explosive disorder Acute Schizophrenia Acute
[2017-03-02] MEDS: risperiDONE 2 MG TAB PO SCH (09:16)
[2017-03-02] MEDS: BENZTROPINE MESYLATE 1 MG TAB PO SCH (09:16)
--- NOTE | 2017-03-02 11:10 | BDS ---
[f rep st] BEHAVIORAL HEALTH DISCHARGE SUMMARY IDENTIFICATION: This 36-year-old male who is currently homeless, who receives Social Security Disability benefits for severe mental illness. ADMISSION DIAGNOSES: Schizophrenia. Cannabis use disorder. Homelessness. No supports. BRIEF PSYCHIATRIC HISTORY: The patient was a poor historian when he was admitted. He later endorsed past psychiatric hospitalizations in [place] and in [place]. He also received outpatient treatment in [place]. He eventually signed a release of information that indicated the patient was treated with Risperdal 6 mg a day, Risperdal Consta 37.5 mg q. 2 weeks, Cogentin 0.5 mg in the morning, 1 mg at nighttime, and Benadryl at bedtime, at an outpatient provider in [place] in July 2016. The patient reported he was not currently taking psychiatric medications when he was admitted and was not currently in outpatient mental health treatment when he was admitted. He has a history of daily cannabis abuse. Per the outside records, the patient also has a history of an ER visit for methamphetamine abuse, but the patient denied any methamphetamine abuse prior to the current admission. SOCIAL HISTORY: The patient is a poor historian. The patient is from his . Apparently, his is also homeless, has severe mental illness , and lives in a homeless nursing home in [place]. The patient signed a release of information for his mother, who does not want contact with the patient. The patient apparently has children, but does not have any detention rights. The patient has a history of incarcerations, but the patient will not explain why he was arrested in the past. BRIEF MEDICAL HISTORY: The patient denied any current medical problems when he was admitted. However, he reported a history of pneumothorax with a thoracotomy in the past. ALLERGIES: Listed allergies to aspirin and ibuprofen. REASON FOR ADMISSION: The patient apparently self-presented in the emergency department, was agitated, disorganized, and acting bizarre. He apparently threw and destroyed a phone, and was a poor historian, and was nonsensical at times. He received medications for agitation in the emergency room, was placed on an M1 hold for grave disability, and admitted to the inpatient unit. INITIAL EXAM: He was an alert, tall, male with a mustache. He was ambulatory without tremors or focal weakness. He was very thin. His speech was loud and regular rate and rhythm. He had brief yelling. He had severe psychomotor agitation. He had very disorganized thought process and was not able to explain recent events or past mental health treatment. He denied auditory hallucinations, but had extreme paranoia about the intentions of others , and was fearful of medications causing him to be poisoned. He denied thoughts to hurt himself or others. His memory was poor. His insight was poor. His judgment was impaired. HOSPITAL COURSE: The patient was initially given Zyprexa and Ativan in the emergency department and was started on olanzapine 10 mg twice daily on the inpatient unit for disorganized psychosis. The patient may have had some manic symptoms in that he was hyperkinetic, loud, brief yelling, had decreased sleep, but the patient denied any history of grandiose delusions or sustained insomnia separate from psychotic symptoms. The patient had extreme agitation and went into seclusion after he pulled off a large painting from the wall, and threw a chair, and was agitated, nonsensical, and was menacing staff, and verbally abusive to staff. The patient was started on emergency medications due to this episode along with paranoia and noncompliance with oral medication. The patient was then started on Risperdal scheduled 2 mg twice daily and then three times daily for schizophrenia along with Cogentin 1 twice daily and Ativan 1 three times daily. The patient had severe agitation and was continued on emergency medications for approximately 6 days, due to concern that he had paranoia that was interfering with his compliance with medication. With treatment, the patient had marked improvement. He had improved thought organization, was much more calm, had reduction in yelling, had improved organization of thought, and reduced paranoia toward staff and medications. The patient had difficulty with discharge planning as he was not interested in revealing his intentions as far as where he would go after discharge. The patient was eventually agreeable to return to [place]. The patient reported he had past outpatient treatment at [facility] with the [facility] in [place]. Reported he would return there to receive outpatient treatment there. The patient did report he receives Social Security benefits that he could use to obtain food and transportation. The patient had improved but limited insight during the course of hospitalization, was agreeable to take medications when he left. The patient was given education about the risks of cannabis causing paranoia, disorganized thinking, cognitive impairment, and anxiety. The patient declined referrals to outpatient substance abuse treatment. The patient did at 2 points in time, reported having a cough with blood in the sputum. The patient's sputum was minimal and there was only a trace of blood. The patient was sent to the emergency department on 1 occasion and had a chest x-ray which was normal. The patient did not have other signs of infection or tuberculosis. He was afebrile , eating well, did not have fevers, chills, or sweats. Was not observed coughing on a recurrent basis at all. Prior to discharge, the patient was calm and appropriate on the unit, able to sit through meals, able to sit through groups with appropriate interaction with staff and patients and did not appear agitated or paranoid, and repeatedly denied any thoughts to hurt himself or others, and denied hallucinations. CONSULTATIONS: As noted above, the patient was seen by a hospitalist for baseline physical exam. He also went to the emergency room and got a chest x- ray during the course of the hospitalization. CONDITION AT DISCHARGE: He is a tall male with a mustache. He is ambulatory without weakness or tremors. He has fair eye contact. His speech is regular rate and rhythm. His thoughts are organized but has a poverty of information, poverty of detail, poverty of content. He denies any thoughts to hurt himself or others. He describes his mood as "pretty good." His affect is euthymic and pleasant. He denies auditory hallucinations or paranoia. His insight appears to be partial awareness that he has mental illness and needs treatment. His judgment appears appropriate. DISCHARGE DIAGNOSES: Schizophrenia, disorganized type. Cannabis use disorder, severe. Homelessness. No supports. DISCHARGE MEDICATIONS: Risperdal 3 mg p.o. twice daily, Cogentin 1 mg p.o. twice daily. DISPOSITION: The patient will be leaving the hospital independently. He has information about followup at [facility] with the [facility] in [place]. He was also given assistance getting information about shelters in [place] and [place]. He was also given information about medical and mental health followup in [place], if he were to stay in [place]. LEGAL STATUS: The patient was admitted on M1 hold. This was converted to short term certification. This will be terminated, so the patient can get outpatient treatment on a voluntary basis after discharge. ADDENDUM/LABS: The patient had a white blood cell count 7.2, hemoglobin 5.9, platelet count 221. Sodium 139, potassium 4.1, creatinine 1.1, glucose 94. Hemoglobin A1c 5.5, calcium 9.9. Liver function tests were normal. TSH 1.5. Urine tox screen was positive for cannabis only. Chest X-ray negative for acute disease. /[id number]/MODL MTDD
== END 2017-03-02 10:30 | disposition home or self-care (01) | DRG 885 ==
LOC: BBEH 22:40
PROVIDERS: ADMIT Psychiatry & Neurology Psychiatry
DX: F20.1 Disorganized schizophrenia (principal); F12.20 Cannabis dependence, uncomplicated; Z59.0 Homelessness
CPT/HCPCS: 80305; G0480; J0515; J1200; J2060

== ENCOUNTER 2017-02-24 00:07 | Emergency (ER) | payer MEDICAID ==
[2017-02-24 00:11] VITALS: RESP 16
--- NOTE | 2017-02-24 00:37 | EDPHY ---
H & P Stated Complaint: coughing up blood HPI/ROS: HPI The patient presents transferred from [address] [place] [address] where he is receiving psychiatric care for an episode of hemoptysis which occurred after he was taken down by security there. Apparently, while in seclusion, he coughed up some blood twice. Nurses report that he has been coughing occasionally since his arrival there. History is limited from the patient, however he denies any pain, and denies any ongoing coughing. He received medication including Haldol and Ativan just prior to arrival. REVIEW OF SYSTEMS Constitutional: No fever, no chills. Eyes: No discharge. ENT: No sore throat. Cardiovascular: No chest pain, no palpitations. Respiratory: No cough, no shortness of breath. Gastrointestinal: No abdominal pain, no vomiting. Genitourinary: No hematuria. Musculoskeletal: No back pain. Skin: No rashes. Neurological: No headache. PMHx: Bipolar disorder, history of a pneumothorax Soc Hx: Homeless, recently relocated to [place] from out of state PHYSICAL General Appearance: In no acute distress, somewhat sedated Eyes: Pupils equal and round no pallor or injection ENT, Mouth: Mucous membranes moist Respiratory: There are no retractions, lungs are clear to auscultation Cardiovascular: Regular rate and rhythm Gastrointestinal: Abdomen is soft and non-tender, no masses, bowel sounds normal Neurological: A&O, moves all extremities Skin: Warm and dry, no rashes Musculoskeletal: Neck is supple non tender Extremities: symmetrical, full range of motion Psychiatric: Patient is oriented X 3, there is no agitation Source: Patient, Old records Exam Limitations: No limitations - Personal History Current Tetanus/Diphtheria Vaccine: Unsure Current Tetanus Diphtheria and Acellular Pertussis (TDAP): Unsure - Medical/Surgical History Hx Asthma: No Hx Chronic Respiratory Disease: No Hx Diabetes: No Hx Cardiac Disease: No Hx Renal Disease: No Hx Cirrhosis: No Hx Alcoholism: No Hx HIV/AIDS: No Hx Splenectomy or Spleen Trauma: No Other PMH: ptsd anxiety depression. "intermittent explosive disoder" - Social History Smoking Status: Current every day smoker Constitutional: Initial Vital Signs Temperature (C) 36.8 C 02/24/17 00:09 Heart Rate 79 02/24/17 00:09 Respiratory Rate 16 02/24/17 00:09 Blood Pressure 101/71 02/24/17 00:09 O2 Sat (%) 96 02/24/17 00:09 O2 Delivery Mode Room Air Allergies/Adverse Reactions: aspirin Allergy (Verified 02/21/17 10:20) ibuprofen Allergy (Verified 02/21/17 10:20) Home Medications: Medication Instructions Recorded Unobtainable 02/23/17 Medical Decision Making - Diagnostics Imaging Results: Chest x-ray single view demonstrates no pneumothorax, no obvious rib fracture, no effusion, interpreted by me, radiology interpretation is pending. Differential Diagnosis: This is a 36-year-old man with schizophrenia coming from [address] [place] [address] psychiatric care for hemoptysis which began today. It seems the patient has been coughing occasionally while an inpatient there, then was involved in a take down and then had 2 episodes of cough productive of bloody substance. The patient is unable to recount much of the history, likely due to his sedation as he received Haldol and Ativan prior to arrival. Vital signs are normal, he is not hypoxic or tachycardic. Lungs sound clear on my exam. Chest x-ray shows no pneumothorax, rib fractures, effusion, infiltrate. Differential diagnoses considered include pneumonia, pneumothorax, rib fracture , tracheal injury. Tuberculosis is a consideration. Given normal chest x-ray here, I doubt any serious pathology. His pain could be due to some small amount of trauma from earlier. Given his well appearance here, I feel he is suitable for transfer back to inpatient psychiatry. Departure - Departure Disposition: [facility] Clinical Impression: Coughing Condition: Good Instructions: Chronic Cough (ED) Additional Instructions: Your chest x-ray looks normal in her oxygen level is also normal. It does not appear that you have a collapsed lung or any rib fractures. Please return if your symptoms worsen in any way. Referrals: Liliana Mcneal MD [Medical Doctor] - As per Instructions
[2017-02-24 01:26] VITALS: BP 106/78; PULSE 84
[2017-02-24 02:04] VITALS: TEMP 98.4; O2SAT 96
== END 2017-02-24 02:07 ==
LOC: EDUNIT#
DX: R04.2 Hemoptysis (principal)